=== PATIENT | female | born 1960 | race American Indian/Alaskan Native ===

== ENCOUNTER 2019-01-19 10:48 | Outpatient (CLI) | payer MEDICAID ==
--- NOTE | 2019-01-19 17:49 | Vascular Lab Report ---
PROCEDURE: VL VENOUS DUPLEX LE RT TECHNIQUE: The routine technique for sonogram was performed per protocol from this institution HISTORY: SWELLING RIGHT LOWER EXTREMITY COMPARISONS: None FINDINGS: Diffuse soft tissue swelling No evidence of deep venous thrombosis on the circulation sales representative images submitted IMPRESSION: Negative for DVT. This document is electronically signed by Payam Farr MD., January 19 2019 05:47:45 PM ET
== END 2019-01-19 10:49 | disposition home or self-care (01) ==
LOC: VAS 10:48
PROVIDERS: ATTEND Family Medicine
DX: R22.41 Localized swelling, mass and lump, right lower limb (principal); I11.0 Hypertensive heart disease with heart failure; I50.9 Heart failure, unspecified; K21.9 Gastro-esophageal reflux disease without esophagitis; E11.9 Type 2 diabetes mellitus without complications; E03.9 Hypothyroidism, unspecified; Z90.89 Acquired absence of other organs; Z90.710 Acquired absence of both cervix and uterus

== ENCOUNTER 2019-10-01 19:21 | Emergency (ER) | payer MEDICAID ==
[2019-10-01] MEDS ORDERED: ACETAMINOPHEN 325 MG TAB PO ONE (23:17)
[2019-10-01] MEDS ORDERED: ACETAMINOPHEN 325 MG TAB ONE (23:21)
--- NOTE | 2019-10-02 03:26 | Emergency Department Report ---
ED ENT HPI - General Chief complaint: Sore Throat Stated complaint: FLU LIKE SX ON R SIDE Time Seen by Provider: 10/02/19 01:09 Source: patient Mode of arrival: Ambulatory Limitations: No Limitations - History of Present Illness Initial comments: Ms. Kemp is a 9-year-old -[place] female who presents for sore throat 3 days, no no fever or chills, patient states symptoms 1 week. There is no fever no nausea vomiting. No dental pain no sinus pain or pressure MD complaint: sore throat Onset/Timin -: week(s) Location: throat Severity: moderate Severity scale (0 -10): 4 Quality: aching Consistency: constant (were placed in) Improves with: none (Degenerative: Is) Worsens with: swallowing Associated Symptoms: sore throat - Related Data Home Medications Medication Instructions Recorded Confirmed Last Taken Lisinopril 40 mg PO DAILY 12/16/15 05/04/17 Unknown amLODIPine 10 mg PO DAILY 12/16/15 05/04/17 Unknown Synthroid 1 tab PO DAILY 05/04/17 05/04/17 Unknown Previous Rx's Medication Instructions Recorded Last Taken Type Amoxicillin/Potassium Clav 1 each PO BID 10 Days #20 tablet 10/02/19 Unknown Rx [Augmentin 875-125 Tablet] Dexamethasone [Decadron] 4 mg PO BID #6 tablet 10/02/19 Unknown Rx Ibuprofen [Motrin 800 MG tab] 800 mg PO Q8HR PRN #30 tablet 10/02/19 Unknown Rx Allergies Allergy/AdvReac Type Severity Reaction Status Date / Time No Known Allergies Allergy Unverified 12/16/15 02:27 ED Dental HPI - General Chief complaint: Sore Throat Stated complaint: FLU LIKE SX ON R SIDE Time Seen by Provider: 10/02/19 01:09 Source: patient Mode of arrival: Ambulatory Limitations: No Limitations - Related Data Home Medications Medication Instructions Recorded Confirmed Last Taken Lisinopril 40 mg PO DAILY 12/16/15 05/04/17 Unknown amLODIPine 10 mg PO DAILY 12/16/15 05/04/17 Unknown Synthroid 1 tab PO DAILY 05/04/17 05/04/17 Unknown Previous Rx's Medication Instructions Recorded Last Taken Type Amoxicillin/Potassium Clav 1 each PO BID 10 Days #20 tablet 10/02/19 Unknown Rx [Augmentin 875-125 Tablet] Dexamethasone [Decadron] 4 mg PO BID #6 tablet 10/02/19 Unknown Rx Ibuprofen [Motrin 800 MG tab] 800 mg PO Q8HR PRN #30 tablet 10/02/19 Unknown Rx Allergies Allergy/AdvReac Type Severity Reaction Status Date / Time No Known Allergies Allergy Unverified 12/16/15 02:27 ED Review of Systems ROS: Stated complaint: FLU LIKE SX ON R SIDE Other details as noted in HPI Constitutional: denies: chills, fever Eyes: denies: eye pain, eye discharge, vision change ENT: denies: ear pain, throat pain Respiratory: denies: cough, shortness of breath, wheezing Cardiovascular: denies: chest pain, palpitations Endocrine: no symptoms reported Gastrointestinal: denies: abdominal pain, nausea, diarrhea Genitourinary: denies: urgency, dysuria, discharge Musculoskeletal: denies: back pain, joint swelling, arthralgia Skin: denies: rash, lesions Neurological: denies: headache, weakness, paresthesias Psychiatric: denies: anxiety, depression Hematological/Lymphatic: denies: easy bleeding, easy bruising ED Past Medical Hx - Past Medical History Previous Medical History?: Yes Hx Hypertension: Yes Hx Congestive Heart Failure: Yes Hx Diabetes: Yes Hx Asthma: No Hx COPD: No Additional medical history: hypothyroidism, Equilibrium problems - Surgical History Past Surgical History?: Yes Additional Surgical History: Gastric bypass, hyst, eye, tonsils, knee, foot - Social History Smoking Status: Never Smoker Substance Use Type: None - Medications Home Medications: Home Medications Medication Instructions Recorded Confirmed Last Taken Type Lisinopril 40 mg PO DAILY 12/16/15 05/04/17 Unknown History amLODIPine 10 mg PO DAILY 12/16/15 05/04/17 Unknown History Synthroid 1 tab PO DAILY 05/04/17 05/04/17 Unknown History Amoxicillin/Potassium Clav 1 each PO BID 10 Days #20 tablet 10/02/19 Unknown Rx [Augmentin 875-125 Tablet] Dexamethasone [Decadron] 4 mg PO BID #6 tablet 10/02/19 Unknown Rx Ibuprofen [Motrin 800 MG tab] 800 mg PO Q8HR PRN #30 tablet 10/02/19 Unknown Rx ED Physical Exam - General Limitations: No Limitations General appearance: alert, in no apparent distress - Head Head exam: Present: atraumatic, normocephalic - Eye Eye exam: Present: normal appearance, PERRL, EOMI Pupils: Present: normal accommodation - ENT ENT exam: Present: mucous membranes dry, TM's normal bilaterally, normal external ear exam - Expanded ENT Exam Expanded Ear exam: Present: normal external inspection Teeth exam: Present: normal inspection Throat exam: Positive: tonsillar erythema, tonsillomegaly, other (uvula midline no exudate no lesions no stridor ). Negative: tonsillar exudate, R peritonsillar mass, L peritonsillar mass - Neck Neck exam: Present: normal inspection, full ROM. Absent: tenderness, meningismus, lymphadenopathy - Respiratory Respiratory exam: Present: normal lung sounds bilaterally. Absent: respiratory distress - Cardiovascular Cardiovascular Exam: Present: regular rate, normal rhythm. Absent: systolic murmur, diastolic murmur, rubs, gallop - GI/Abdominal GI/Abdominal exam: Present: soft, normal bowel sounds - Rectal Rectal exam: Present: deferred - Extremities Exam Extremities exam: Present: normal inspection, full ROM, normal capillary refill. Absent: tenderness - Back Exam Back exam: Present: normal inspection, full ROM, rash noted. Absent: tenderness, CVA tenderness (R), CVA tenderness (L), muscle spasm, paraspinal tenderness - Neurological Exam Neurological exam: Present: alert, oriented X3, CN II-XII intact, normal gait, reflexes normal. Absent: motor sensory deficit - Psychiatric Psychiatric exam: Present: normal affect, normal mood - Skin Skin exam: Present: warm, dry, intact, normal color. Absent: rash ED Course Vital Signs 10/01/19 19:38 Temperature 100.8 F H Pulse Rate 74 Respiratory 14 Rate Blood Pressure 164/105 O2 Sat by Pulse 98 Oximetry ED Medical Decision Making - EKG Data EKG shows normal: sinus rhythm - Medical Decision Making This is pharyngitis without exudate, however there is recurrent plan, Augmentin by mouth twice a day for 10 days ibuprofen when necessary for pain and fever Cepacol lozenges follow up with ENT int 2-3 days patient verbalizes agreement and understanding of discharge plan DC to home in stable condition at this time Critical care attestation.: If time is entered above; I have spent that time in minutes in the direct care of this critically ill patient, excluding procedure time. ED Disposition Clinical Impression: Pharyngitis Qualifiers: Pharyngitis/tonsillitis etiology: unspecified etiology Qualified Code(s): J02.9 - Acute pharyngitis, unspecified Disposition: DC-01 TO HOME OR SELFCARE Is pt being admited?: No Does the pt Need Aspirin: No Condition: Stable Instructions: Pharyngitis (ED) Prescriptions: Amoxicillin/Potassium Clav [Augmentin 875-125 Tablet] 1 each PO BID 10 Days #20 tablet Dexamethasone [Decadron] 4 mg PO BID #6 tablet Ibuprofen [Motrin 800 MG tab] 800 mg PO Q8HR PRN #30 tablet PRN Reason: pain fever Referrals: [facility] [Outside] - 3-5 Days Forms: Work/School Release Form(ED) Time of Disposition: 03:42
[2019-10-02 04:00] VITALS: BP 147/91
== END 2019-10-02 04:00 | disposition home or self-care (01) ==
LOC: ED 19:21
DX: J02.9 Acute pharyngitis, unspecified (principal)
CPT/HCPCS: 99282